=== PATIENT | female | born 1995 | race Caucasian/White ===

== ENCOUNTER 2022-06-27 20:42 | Inpatient (IN) | payer MEDICARE, MEDICAID, SELFPAY ==
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
[2022-06-28] MEDS: cloBAZam 10 MG TABLET PO (08:34)
[2022-06-28 08:49] VITALS: BP 91/45; PULSE 74; RESP 16; TEMP 36.4; O2SAT 97
[2022-06-28 09:16] VITALS: BP 96/59; PULSE 83
[2022-06-28 09:39] LABS: Estimated Average Glucose 77 mg/dL; Hemoglobin A1c % 4.3 %
--- NOTE | 2022-06-28 10:00 | P.HPPS_ITS ---
HPI Date of Service: 06/28/22 Chief Complaint: Adjustment disorder, unspecified Sources of Information: patient interviewed, chart reviewed and crisis/core team assessment reviewed HPI Subjective Notes: Moody Warning and Conditional Voluntary Narrative: Patient is a 27-year-old female with history with refractory epilepsy and implanted brain RNS, PTSD, social anxiety who presents for impulsive, intentional overdose in face of multiple psychosocial stressors including homelessness and being away from her 8-year-old son. Patient reports she was living in low-income housing with her boyfriend of 10 years and her son; the director there , there was a mass eviction and issues made it hard for her to get subsequent low-income housing. Patient and her son and boyfriend hopped from family to family for living. She felt this was detrimental to her son and temporarily gave up guardianship to her boyfriend's mother where he has been living for the past 3 years. Patient and her boyfriend have been living with a family for the past 2 and half years however the situation is untenable and the family wants them to move out. They are giving him time to find housing but it remains difficult. Patient currently works at a job that she likes but her boyfriend has not been able to find one. Although they pay rent, the family has been pushing them to move about soon and they have no place to go; patient also misses her son terribly and though she sees him weekly, is feeling marginalized by the temporary guardian. Faced with homelessness again and from her son, patient started to get overwhelmingly anxious. In a moment of despair, she impulsively grabbed her seizure medication and took it an intentional suicide at [facility]. Patient got scared and did not want to called her mother who called 911. Patient is very glad she is alive and remorseful, never wanting to leave her son alone. With tear she says she wants to be back with her son and have a place to live. Patient endorses history of social anxiety and often avoids places with a lot of people. History of trauma and endorses intermittent flashbacks but daily avoidance of triggers and hypervigilance. She denies any history of SI or attempts in the past though she intermittently will engage in superficial self-harming behavior. She endorses feeling depressed but says it is just situational because she is away from her son. Denies history of manic episodes or behaviors. She denies any drug or alcohol abuse. Patient would like treatment for anxiety. She reports she is safe and would never hurt herself again and hopes to be able to discharge soon, very much wanting to see her son for the holidays. Past Psychiatric History: One history of inpatient admission when she was in 6th grade; nothing otherwise Trial of escitalopram which was ineffective Medical Evaluation Reviewed: Hospitalist Yarely Pending [facility] Medical History (Updated 06/28/22 @ 16:46 by Peterson Sim MD) Epilepsy PTSD (post-traumatic stress disorder) Family History: Mother: Anxiety Social History: Currently homeless, staying at a family's house Long-time boyfriend for the past 10 years who is supportive 8-year-old son who lives with her boyfriend's mother who is the temporary guardian Patient's mother is supportive and has invited patient to come live with her however there is no room for her son Patient currently has a job at a [employer] Substance History: Denies Trauma History: Positive trauma history; patient did not elaborate Diagnostics Vital Signs (24Hr): Vital Signs - 24 hr 06/28/22 08:49 06/28/22 09:16 Temperature 97.6 F Pulse Rate 74 83 Respiratory Rate 16 Blood Pressure 91/45 L 96/59 L Pulse Oximetry 97 Oxygen Delivery Method Room Air Labs Results: 06/28/22 08:48 Labs: Laboratory Results - last 48 hr 06/28/22 08:48 Estimat Average Glucose 77 Hemoglobin A1c % 4.3 Meds/Allergies Meds Home Medications Medication Instructions Recorded Confirmed Type clobazam 10 mg PO DAILY 06/27/22 06/27/22 History clobazam 15 mg PO BEDTIME 06/27/22 06/28/22 History zonisamide 800 mg PO BID 06/27/22 06/28/22 History Allergies Allergies Allergy/AdvReac Type Severity Reaction Status Date / Time oxcarbazepine Allergy Rash Verified 06/28/22 00:04 [From Trileptal] levetiracetam [From Keppra] AdvReac Agitated Verified 06/28/22 00:04 Mental Status Exam Mental Status Exam Narrative: Pt is alert and oriented; behavior is cooperative, tearful, anxious; patient is not in distress; dressed in casual attire with adequate hygiene; mood is described as anxious and affect congruent and tearful; eye contact appropriate; Speech is normal rate, volume and prosody and not pressured; no psychomotor agitation/retardation present; thought process is organized and goal directed; Thought content is on troubles, treatment and seeing her son; otherwise pertinent to relevant topics and without any delusional content, paranoid ideations or grandiosity; denies any SI/HI. There is no evidence of perceptual disturbance. Patients insight and judgment appear intact. Assessment & Plan Assessment & Plan (1) Adjustment disorder with mixed disturbance of emotions and conduct: Status: Acute Code(s): F43.25 - Adjustment disorder with mixed disturbance of emotions and conduct (2) Epilepsy: Status: Acute Code(s): G40.909 - Epilepsy, unspecified, not intractable, without status epilepticus (3) PTSD (post-traumatic stress disorder): Status: Acute Code(s): F43.10 - Post-traumatic stress disorder, unspecified Plan Patient is a 27-year-old female with history with refractory epilepsy and implanted brain RNS, PTSD, social anxiety who presents for impulsive, intentional overdose in face of multiple psychosocial stressors including homelessness and being away from her 8-year-old son Patient suicide attempt was impulsive; she regrets that is very glad she is alive. Like medication treatment for anxiety. However she is adamant that this was a 1 time event, that she will never do it again and denies any history of attempts. She is hoping to discharge soon. Patient has refractory epilepsy and currently does not have access to 1 of her antiepileptic medications Aptiom. Hospice Home Health Aide is hesitant to start medication for anxiety since her for all anti epile ptic medication regimen is not available. However the risk of lowering the seizure threshold with antidepressant is very low and patient does have an implanted RNS making risk of seizure induced by antidepressant medication low risk. Patient would like therapist on discharge Plan: CV Q 15 minute checks Continue Clobazam 10mg daily and 15mg qhs Continue Zonisamide 300mg BID Continue Aptiom 800mg BID: * not on formulary: Patient does not have her own; working with pharmacy to see if can obtain Considering medication for anxiety however technical writer and editor is hesitant to start 1 while patient does not have full anti epileptic medication regimen available [facility] Aide called patient's neurologist Dr. Polanco and waiting to hear back reviewed labs from [facility] Lytes, CBC, calcium WNL HCG negative UDS: +benzo/cannabanoids Reviewed medication trials: escitalopram: Not effective Lamictal: Rash Trileptal: Increased anger Depakote: Increased anger Patient educated on: diagnosis, medication risk/benefits, therapeutic strategies and medical condition Informed Consent: understands Reason for continued inpatient stay Substantial Risk for: rapid decompensation Statement Statement: I have reviewed the history and physical and performed a pertinent examination on my patient. No changes have occurred unless specified. If the History and Physical was not performed prior to admission, the Hospitalist's service will be consulted for completing the admission physical. Time Spent With Patient Time: Total time managing care of this patient today ____ minutes.
[2022-06-28 10:27] LABS: Alanine Aminotransferase 10 U/L (0-31); Albumin Level 4.5 g/dL (3.5-5.0); Alkaline Phosphatase 96 U/L (39-117); Anion Gap 11 (12-20); Aspartate Amino Transferase 16 U/L (5-31); Bilirubin Direct < 0.2 mg/dL (0.0-0.5); Bilirubin Total 0.3 mg/dL (0.0-1.0); Blood Urea Nitrogen 14 mg/dL (9-16); Calcium 9.3 mg/dL (8.4-10.2); Carbon Dioxide 22 mmol/L (22-29); Chloride 111 mmol/L (96-108); Cholesterol 223 mg/dL; Estimated Glomerular Filt Rate > 60; Glucose Fasting 85 mg/dL (60-99); HDL Cholesterol 52 mg/dL; LDL Cholesterol Calculated 157 mg/dl; Potassium 4.2 mmol/L (3.3-5.1); Sodium 140 mmol/L (135-145); Thyroid Stimulating Hormone 2.09 uIU/mL (0.32-4.0); Triglycerides 74 mg/dL
[2022-06-28 10:31] LABS: Folate 19.1 ng/mL (> or = 4.0); Vitamin B12 389 pg/mL (200-900)
[2022-06-28] MEDS: Zonisamide 100 MG CAPSULE 300 MG PO ×2 (12:37→19:32)
--- NOTE | 2022-06-28 13:49 | P.CONHOSP_ITS ---
History of Present Illness Data of Consult Service Date: 06/28/22 Primary Care Provider: Unknown Physician HPI Reason for consult: routine medical H&P 27 yo F admitted to . Medical consult requested for routine medical H&P. Pt seen and their room. No medical complaints reported. PMH Seizure disorder P[facility] Intra-cranial surgery in [place] for her seizures (states she has an implant for her seizures) Appendectomy FH anxiety in mother SH denies tobacco, alcohol or ilicit substances [facility] Medical History (Updated 06/28/22 @ 17:21 by Folrin Ward MD) Epilepsy PTSD (post-traumatic stress disorder) Social History Household Members: Significant Other Housing: Homeless Do you presently have visiting nurse or other home services: No Patient Tobacco Use Status: Never used Tobacco Patient Given Instructions on How to Stop Smoking: No Second Hand Smoke Exposure: Yes Use of substances other than those prescribed or required for medical reasons: Yes Substance Use Type: Marijuana Substance Use Frequency: Daily Last Used Substance: Just Prior to Admission Currently Displaying Signs/Symptoms of Drug Intoxication Withdrawal: No Any prior treatment program specific to substance use: No Have you been hit, kicked, punched, or otherwise hurt by someone within the past year? If so, by whom?: No Do you feel safe in your current relationship?: Yes Is there a partner from a previous relationship who is making you feel unsafe now?: No Are you made to feel afraid or neglected: No Spiritual Healthcare Practices: None Orthodoxy Healthcare Practices: None Cultural Healthcare Practices: None Advance Directives: No Advance Directives Information Provided: No Do you have thoughts of harming others: None Do you have a plan to hurt others: No Plan Recently lost weight without trying: No Eating poorly because of decreased appetite: No Nutrition Risks: Difficulty swallowing Patient : No : No Poor oral hygiene: No service: No Sexual orientation: Straight/Heterosexual Meds Allergies Allergy/AdvReac Type Severity Reaction Status Date / Time oxcarbazepine Allergy Rash Verified 06/28/22 00:04 [From Trileptal] levetiracetam [From Keppra] AdvReac Agitated Verified 06/28/22 00:04 Active Medications: Current Medications Acetaminophen (Acetaminophen 325 Mg Tablet) 650 mg PO Q6H PRN PRN Reason: Headache/Pain Mild Scale (1-3) Al Hydroxide/Mg Hydroxide (Magnesium Hydrox/Alum Hydrox 30 Ml Oral.Susp) 30 ml PO Q6H PRN PRN Reason: Heartburn/Nausea Clobazam (Clobazam 10 Mg Tablet) 15 mg PO BEDTIME [facility] Clobazam (Clobazam 10 Mg Tablet) 10 mg PO DAILY [facility] Last Admin: 06/28/22 08:34 Dose: 10 mg Hydroxyzine HCl (Hydroxyzine Hcl 25 Mg Tablet) 25 mg PO Q6H PRN PRN Reason: Anxiety Magnesium Hydroxide (Milk Of Magnesia 30 Ml Oral.Susp) 30 ml PO DAILY PRN PRN Reason: Constipation Non-Formulary Medication (Aptiom) 800 mg PO BID [facility] Trazodone HCl (Trazodone Hcl 50 Mg Tablet) 50 mg PO BEDTIME PRN PRN Reason: Insomnia Zonisamide (Zonisamide 100 Mg Capsule) 300 mg PO BID [facility] Home Medications Medication Instructions Recorded Confirmed Last Taken Type clobazam 10 mg PO DAILY 06/27/22 06/27/22 Unknown History clobazam 15 mg PO BEDTIME 06/27/22 06/28/22 Unknown History zonisamide 800 mg PO BID 06/27/22 06/28/22 Unknown History Physical Exam Vital Signs and Narrative: Vital Signs: Last Vital Signs Temp 97.6 F 06/28/22 08:49 Pulse 83 06/28/22 09:16 Resp 16 06/28/22 08:49 BP 96/59 L 06/28/22 09:16 Pulse Ox 97 06/28/22 08:49 O2 Del Method 06/28/22 08:49 Const: Other: General - no acute distress, appears comfortable Cardiovascular - regular rate and rhythm, S1-S2 Lungs - normal respiratory effort, clear to auscultation bilaterally, no wheezing Abdomen - soft, nontender, no rebound or guarding Extremities - no edema bilaterally Neuro - awake and alert, no focal deficits; cn 2-12 intact b/l Results Labs CBC and Chem 7: 06/28/22 08:48 Labs: Laboratory Results - last 24 hr 06/28/22 06/28/22 06/28/22 08:48 08:48 08:48 Anion Gap 11 L Estim Creat Clear Calc TNP Estimated GFR > 60 Fasting Glucose 85 Estimat Average Glucose 77 Hemoglobin A1c % 4.3 Calcium 9.3 Total Bilirubin 0.3 Direct Bilirubin < 0.2 AST 16 ALT 10 Alkaline Phosphatase 96 Total Protein 7.0 Albumin 4.5 Triglycerides 74 Cholesterol 223 LDL Cholesterol, Calc 157 HDL Cholesterol 52 Vitamin B12 389 Folate 19.1 TSH 2.09 Assessment and Plan (1) Routine medical exam: Status: Acute Plan 27 yo F admitted to [facility]. Medically stable at this time. Continue her anti-epileptics Will sign off at this time. Re-consult with any issues. Time Spent With Patient Time: Total time managing care of this patient today ____ minutes.
[2022-06-28 17:22] VITALS: BP 123/58; PULSE 75; RESP 16; TEMP 36.6; O2SAT 98
[2022-06-28] MEDS: cloBAZam 10 MG TABLET 15 MG PO (19:29)
[2022-06-29] MEDS: cloBAZam 10 MG TABLET PO (08:10)
[2022-06-29] MEDS: Zonisamide 100 MG CAPSULE 300 MG PO ×2 (08:10→20:49)
[2022-06-29 08:59] VITALS: BP 106/71; PULSE 74; RESP 18; TEMP 36.4; O2SAT 97
--- NOTE | 2022-06-29 10:37 | P.PNPSI_ITS ---
Subjective Subjective Date of Service: 06/29/22 Reason For Visit: Adjustment disorder, unspecified Interim History: agrees to remain on unit for further stabilization and med management. Also discussed conversation w/ neuro team (see below) and pt agrees to start Tegretol. pt gave verbal permission for account underwriter to discuss case with neuro team (witnessed by SW transportation logistics internship Leydi) talked with Jailene Neuro PA who works w/ (and confirmed with) dr. Polanco and informs that pt is at increasing risk for seizure the longer she is off Aptiom. Recommends discontinuing Aptiom since they too have trouble with Diagnostics Vital Signs (24Hr): Vital Signs - 24 hr Narrative: 17:22 06/29/22 08:59 Temperature 98 F 97.6 F Pulse Rate 75 74 Respiratory Rate 16 18 Blood Pressure 123/58 L 106/71 Diagnostics Vital Signs (24Hr): Oxygen Delivery Method Room Air Room Air Labs 08:59 Temperature 98 F 97.6 F Pulse Rate 75 74 Respiratory Rate 16 18 Blood Pressure 123/58 L 106/71 Pulse Oximetry 98 97 Oxygen Delivery Method Room Air Room Air Labs Results: 06/28/22 08:48 Labs: BUN 14 06/28/22 06/28/22 06/28/22 08:48 08:48 08:48 Sodium 140 Potassium 4.2 Chloride 111 H Carbon Dioxide 22 Anion Gap 11 L BUN 14 Creatinine 0.92 Estim Creat Clear Calc TNP Estimated GFR > 60 Fasting Glucose 85 Estimat Average Glucose 77 Hemoglobin A1c % 4.3 Calcium 9.3 Total Bilirubin 0.3 Direct Bilirubin < 0.2 AST 16 ALT 10 Alkaline Phosphatase 96 Total Protein 7.0 Albumin 4.5 Triglycerides 74 Cholesterol 223 LDL Cholesterol, Calc 157 HDL Cholesterol 52 Vitamin B12 389 Folate 19.1 TSH 2.09 Medications Medications Current Medications Acetaminophen (Acetaminophen 325 Mg Tablet) 650 mg PO Q6H PRN PRN Reason: Headache/Pain Mild Scale (1-3) Al Hydroxide/Mg Hydroxide (Magnesium Hydrox/Alum Hydrox 30 Ml Oral.Susp) 30 ml PO Q6H PRN PRN Reason: Heartburn/Nausea Clobazam (Clobazam 10 Mg Tablet) 15 mg PO BEDTIME [facility] Last Admin: 06/28/22 19:29 Dose: 15 mg Clobazam (Clobazam 10 Mg Tablet) 10 mg PO DAILY [facility] Last Admin: 06/29/22 08:10 Dose: 10 mg Hydroxyzine HCl (Hydroxyzine Hcl 25 Mg Tablet) 25 mg PO Q6H PRN PRN Reason: Anxiety Magnesium Hydroxide (Milk Of Magnesia 30 Ml Oral.Susp) 30 ml PO DAILY PRN PRN Reason: Constipation Non-Formulary Medication (Aptiom) 800 mg PO BID [facility] Trazodone HCl (Trazodone Hcl 50 Mg Tablet) 50 mg PO BEDTIME PRN PRN Reason: Insomnia Zonisamide (Zonisamide 100 Mg Capsule) 300 mg PO BID [facility] Last Admin: 06/29/22 08:10 Dose: 300 mg Allergies Allergies Allergy/AdvReac Type Severity Reaction Status Date / Time oxcarbazepine Allergy Rash Verified 06/28/22 00:04 [From Trileptal] levetiracetam [From Keppra] AdvReac Agitated Verified 06/28/22 00:04 Assessment & Plan Assessment & Plan Z00.00 - Encounter for general adult medical examination without abnormal (1) Routine medical exam: Status: Acute Code(s): findings Plan Patient is a 27-year-old female with history with refractory epilepsy and
--- NOTE | 2022-06-29 10:37 | HO.PSYCHPN ---
Subjective Subjective Date of Service: 06/29/22 Reason For Visit: Adjustment disorder, unspecified Interim History: pt reports feeling a little better; discussed mood and potential helpfulness of medication. pt agrees to trial of Mirtazpine (discussed risks/side-effects). She agrees to remain on unit for further stabilization and med management. Also discussed conversation w/ neuro team (see below) and pt agrees to start Tegretol. pt gave verbal permission for publications writer to discuss case with neuro team (witnessed by SW architectural intern Leydi) talked with [facility] DEBBY who works w/ (and confirmed with) dr. Polanco and informs that pt is at increasing risk for seizure the longer she is off Aptiom. Recommends discontinuing Aptiom since they too have trouble with insurance and instead starting her on Tegretol IR 200mg BID for 1 week and then increasing to 400mg BID. She also says SSRI's or Remeron are fine for treatment of anxiety/depression. Reports that pt went off her seizure meds once before this past summer saying she was depressed, however she resumed taking them. Mental Status Exam Mental Status Exam Narrative: Pt is alert and oriented; behavior is cooperative, friendly, calm; not tearful; patient is not in distress; dressed in casual attire with adequate hygiene; mood is described as little better and affect congruent more calm; eye contact appropriate; Speech is normal rate, volume and prosody and not pressured; no psychomotor agitation/retardation present; thought process is organized and goal directed; Thought content is on troubles, treatment and seeing her son; otherwise pertinent to relevant topics and without any delusional content, paranoid ideations or grandiosity; denies any SI/HI. There is no evidence of perceptual disturbance. Patients insight and judgment appear intact. Diagnostics Vital Signs (24Hr): Vital Signs - 24 hr 06/28/22 17:22 06/29/22 08:59 Temperature 98 F 97.6 F Pulse Rate 75 74 Respiratory Rate 16 18 Blood Pressure 123/58 L 106/71 Pulse Oximetry 98 97 Oxygen Delivery Method Room Air Room Air Labs Results: 06/28/22 08:48 Labs: Laboratory Results - last 48 hr 06/28/22 06/28/22 06/28/22 08:48 08:48 08:48 Sodium 140 Potassium 4.2 Chloride 111 H Carbon Dioxide 22 Anion Gap 11 L BUN 14 Creatinine 0.92 Estim Creat Clear Calc TNP Estimated GFR > 60 Fasting Glucose 85 Estimat Average Glucose 77 Hemoglobin A1c % 4.3 Calcium 9.3 Total Bilirubin 0.3 Direct Bilirubin < 0.2 AST 16 ALT 10 Alkaline Phosphatase 96 Total Protein 7.0 Albumin 4.5 Triglycerides 74 Cholesterol 223 LDL Cholesterol, Calc 157 HDL Cholesterol 52 Vitamin B12 389 Folate 19.1 TSH 2.09 Medications Medications Current Medications Acetaminophen (Acetaminophen 325 Mg Tablet) 650 mg PO Q6H PRN PRN Reason: Headache/Pain Mild Scale (1-3) Al Hydroxide/Mg Hydroxide (Magnesium Hydrox/Alum Hydrox 30 Ml Oral.Susp) 30 ml PO Q6H PRN PRN Reason: Heartburn/Nausea Clobazam (Clobazam 10 Mg Tablet) 15 mg PO BEDTIME [facility] Last Admin: 06/28/22 19:29 Dose: 15 mg Clobazam (Clobazam 10 Mg Tablet) 10 mg PO DAILY [facility] Last Admin: 06/29/22 08:10 Dose: 10 mg Hydroxyzine HCl (Hydroxyzine Hcl 25 Mg Tablet) 25 mg PO Q6H PRN PRN Reason: Anxiety Magnesium Hydroxide (Milk Of Magnesia 30 Ml Oral.Susp) 30 ml PO DAILY PRN PRN Reason: Constipation Non-Formulary Medication (Aptiom) 800 mg PO BID [facility] Trazodone HCl (Trazodone Hcl 50 Mg Tablet) 50 mg PO BEDTIME PRN PRN Reason: Insomnia Zonisamide (Zonisamide 100 Mg Capsule) 300 mg PO BID [facility] Last Admin: 06/29/22 08:10 Dose: 300 mg Allergies Allergies Allergy/AdvReac Type Severity Reaction Status Date / Time oxcarbazepine Allergy Rash Verified 06/28/22 00:04 [From Trileptal] levetiracetam [From Keppra] AdvReac Agitated Verified 06/28/22 00:04 Assessment & Plan Assessment & Plan (1) Routine medical exam: Status: Acute Code(s): Z00.00 - Encounter for general adult medical examination without abnormal findings Plan Patient is a 27-year-old female with history with refractory epilepsy and implanted brain RNS, PTSD, social anxiety who presents for impulsive, intentional overdose in face of multiple psychosocial stressors including homelessness and being away from her 8-year-old son Patient suicide attempt was impulsive; she regrets that is very glad she is alive.? Like medication treatment for anxiety.? However she is adamant that this was a 1 time event, that she will never do it again and denies any history of attempts.? She is hoping to discharge soon.? Patient has refractory epilepsy and currently does not have access to 1 of her antiepileptic medications Aptiom.? Crematorium Operator is hesitant to start medication for anxiety since her for all anti epileptic medication regimen is not available.? However the risk of lowering the seizure threshold with antidepressant is very low and patient does have an implanted RNS making risk of seizure induced by antidepressant medication low risk.? Patient would like therapist on discharge 06/29 reports mood a little better; agrees to trial of mirtazapine for mood/anxiety; agrees to trial of TEgretol and to dc Aptiom per outpt neuro provider. Pt's denies any SI at all and hopes to return home soon. She signed 3 day agrees to remain for few more days to establish tolerance of new meds Plan: 3 day notice Q 15 minute checks START Mirtazapine 7.5mg for depression/anxiety Continue Clobazam 10mg daily and 15mg qhs Continue Zonisamide 300mg BID START Tegretol IR 200mg BID for 1 week (and then 400mg BID) per outpt neurologist. DISCONTINUE Aptiom (and start Tegretol instead) Discussed case with patient's neurologist DEBBY who talked w/ Dr. Polanco and gave recs reviewed labs from [facility] Lytes, CBC, calcium WNL HCG negative UDS: +benzo/cannabanoids Reviewed medication trials:? escitalopram:? Not effective Lamictal: Rash Trileptal:? Increased anger Depakote: Increased sam Patient educated on: diagnosis, medication risk/benefits and medical condition Informed Consent: understands Reason for contiued inpatient stay Substantial Risk for: stable for discharge Time Spent With Patient Time: Total time managing care of this patient today ____ minutes.
[2022-06-29] MEDS: carBAMazepine 200 MG TABLET PO ×2 (16:18→20:52)
[2022-06-29 18:00] VITALS: BP 116/70; PULSE 74; RESP 16; TEMP 36.6; O2SAT 97
[2022-06-29] MEDS: cloBAZam 10 MG TABLET 15 MG PO (20:49)
[2022-06-29] MEDS: Mirtazapine 7.5 MG TABLET PO (20:50)
[2022-06-30 08:16] VITALS: BP 118/83; PULSE 73; RESP 16; TEMP 36.1; O2SAT 97
[2022-06-30] MEDS: cloBAZam 10 MG TABLET PO (08:49)
[2022-06-30] MEDS: carBAMazepine 200 MG TABLET PO ×2 (08:49→22:28)
[2022-06-30] MEDS: Zonisamide 100 MG CAPSULE 300 MG PO ×2 (08:50→22:28)
[2022-06-30 18:00] VITALS: BP 115/65; PULSE 77; TEMP 37.7; O2SAT 100
[2022-06-30] MEDS: cloBAZam 10 MG TABLET 15 MG PO (22:27)
[2022-06-30] MEDS: Mirtazapine 7.5 MG TABLET PO (22:29)
[2022-07-01] MEDS: Zonisamide 100 MG CAPSULE 300 MG PO ×2 (08:21→21:41)
[2022-07-01] MEDS: cloBAZam 10 MG TABLET PO (08:21)
[2022-07-01] MEDS: carBAMazepine 200 MG TABLET PO ×2 (08:21→21:42)
[2022-07-01 08:30] VITALS: BP 121/73; PULSE 78; RESP 18; TEMP 36.3; O2SAT 97
--- NOTE | 2022-07-01 11:48 | HO.PSYCHPN ---
Subjective Subjective Date of Service: 07/01/22 Reason For Visit: Adjustment disorder, unspecified Subjective Notes: Conditional Voluntary Interim History: Patient was seen and discussed in rounds today. Records and plans were reviewed. He has been visible. He appears to be doing better with broader affect. He is social and active and engaged. Eating and sleeping adequately. Planning for discharge early next week, possibly Sunday. No changes were made today Review of Systems Review of Systems Yes all other systems are reviewed and are negative Mental Status Exam Mental Status Exam Narrative: In today's visit he is alert, oriented and pleasant. Normal speech. Good eye contact. Affect is appropriate and contained. No signs of psychosis. No SI. Cognitively intact. Judgment is intact Diagnostics Vital Signs (24Hr): Vital Signs - 24 hr 06/30/22 18:00 07/01/22 08:30 Temperature 99.8 F 97.4 F Pulse Rate 77 78 Respiratory Rate 18 Blood Pressure 115/65 121/73 Pulse Oximetry 100 97 Oxygen Delivery Method Room Air Room Air Labs Results: 06/28/22 08:48 Medications Medications Current Medications Acetaminophen (Acetaminophen 325 Mg Tablet) 650 mg PO Q6H PRN PRN Reason: Headache/Pain Mild Scale (1-3) Al Hydroxide/Mg Hydroxide (Magnesium Hydrox/Alum Hydrox 30 Ml Oral.Susp) 30 ml PO Q6H PRN PRN Reason: Heartburn/Nausea Carbamazepine (Carbamazepine 200 Mg Tablet) 200 mg PO BID [facility] Last Admin: 07/01/22 08:21 Dose: 200 mg Clobazam (Clobazam 10 Mg Tablet) 15 mg PO BEDTIME [facility] Last Admin: 06/30/22 22:27 Dose: 15 mg Clobazam (Clobazam 10 Mg Tablet) 10 mg PO DAILY [facility] Last Admin: 07/01/22 08:21 Dose: 10 mg Hydroxyzine HCl (Hydroxyzine Hcl 25 Mg Tablet) 25 mg PO Q6H PRN PRN Reason: Anxiety Magnesium Hydroxide (Milk Of Magnesia 30 Ml Oral.Susp) 30 ml PO DAILY PRN PRN Reason: Constipation Mirtazapine (Mirtazapine 7.5 Mg Tablet) 7.5 mg PO BEDTIME [facility] Last Admin: 06/30/22 22:29 Dose: 7.5 mg Trazodone HCl (Trazodone Hcl 50 Mg Tablet) 50 mg PO BEDTIME PRN PRN Reason: Insomnia Zonisamide (Zonisamide 100 Mg Capsule) 300 mg PO BID [facility] Last Admin: 07/01/22 08:21 Dose: 300 mg Allergies Allergies Allergy/AdvReac Type Severity Reaction Status Date / Time oxcarbazepine Allergy Rash Verified 06/28/22 00:04 [From Trileptal] levetiracetam [From Keppra] AdvReac Agitated Verified 06/28/22 00:04 Assessment & Plan Assessment & Plan (1) Routine medical exam: Status: Acute Code(s): Z00.00 - Encounter for general adult medical examination without abnormal findings Plan Patient is a 27-year-old female with history with refractory epilepsy and implanted brain RNS, PTSD, social anxiety who presents for impulsive, intentional overdose in face of multiple psychosocial stressors including homelessness and being away from her 8-year-old son Patient suicide attempt was impulsive; she regrets that is very glad she is alive.? Like medication treatment for anxiety.? However she is adamant that this was a 1 time event, that she will never do it again and denies any history of attempts.? She is hoping to discharge soon.? Patient has refractory epilepsy and currently does not have access to 1 of her antiepileptic medications Aptiom.? Clay Roaster is hesitant to start medication for anxiety since her for all anti epileptic medication regimen is not available.? However the risk of lowering the seizure threshold with antidepressant is very low and patient does have an implanted RNS making risk of seizure induced by antidepressant medication low risk.? Patient would like therapist on discharge 06/29 reports mood a little better; agrees to trial of mirtazapine for mood/anxiety; agrees to trial of TEgretol and to dc Aptiom per outpt neuro provider. Pt's denies any SI at all and hopes to return home soon. She signed 3 day agrees to remain for few more days to establish tolerance of new meds Plan: 3 day notice Q 15 minute checks START Mirtazapine 7.5mg for depression/anxiety Continue Clobazam 10mg daily and 15mg qhs Continue Zonisamide 300mg BID START Tegretol IR 200mg BID for 1 week (and then 400mg BID) per outpt neurologist. DISCONTINUE Aptiom (and start Tegretol instead) Discussed case with patient's neurologist DEBBY who talked w/ Dr. Polanco and gave recs reviewed labs from [facility] Lytes, CBC, calcium WNL HCG negative UDS: +benzo/cannabanoids Reviewed medication trials:? escitalopram:? Not effective Lamictal: Rash Trileptal:? Increased anger Depakote: Increased sam 07/01: Continue current plans and regimen Reason for contiued inpatient stay Substantial Risk for: med/psych decompensation Time Spent With Patient Time: Total time managing care of this patient today ____ minutes.
[2022-07-01] MEDS: Milk of Magnesia 30 ML ORAL.SUSP PO (16:18)
[2022-07-01 19:03] VITALS: BP 136/72; PULSE 73
[2022-07-01] MEDS: Mirtazapine 7.5 MG TABLET PO (21:41)
[2022-07-01] MEDS: cloBAZam 10 MG TABLET 15 MG PO (21:41)
[2022-07-02] MEDS: Zonisamide 100 MG CAPSULE 300 MG PO ×2 (07:46→22:14)
[2022-07-02] MEDS: cloBAZam 10 MG TABLET PO (07:46)
[2022-07-02] MEDS: carBAMazepine 200 MG TABLET PO ×2 (07:46→22:13)
[2022-07-02 07:47] VITALS: BP 117/65; PULSE 91; RESP 18; TEMP 36.4; O2SAT 97
--- NOTE | 2022-07-02 08:18 | HO.PSYCHPN ---
Subjective Subjective Date of Service: 07/02/22 Reason For Visit: Adjustment disorder, unspecified Subjective Notes: Conditional Voluntary Healthcare Proxy: No Guardianship: No Medical Problems Affecting Mental Status: No Interim History: Patient was seen and discussed in rounds today. Records and plans were reviewed. She has been stable and is doing well. She is occasion compliant. Still has some anxiety. She is out, social and interactive. Eating and sleeping adequately. No complaints or side effects. No changes were made today Medication Compliance: Yes Side effects from medications: No Review of Systems Review of Systems Yes all other systems are reviewed and are negative Mental Status Exam Mental Status Exam Narrative: In today's visit he is alert, oriented and pleasant. Normal speech. Good eye contact. Affect is appropriate and contained. No signs of psychosis. No SI. Cognitively intact. Judgment is intact Diagnostics Vital Signs (24Hr): Vital Signs - 24 hr 07/01/22 08:30 07/01/22 19:03 07/02/22 07:47 Temperature 97.4 F 97.6 F Pulse Rate 78 73 91 Respiratory Rate 18 18 Blood Pressure 121/73 136/72 117/65 Pulse Oximetry 97 97 Oxygen Delivery Method Room Air Room Air Labs Results: 06/28/22 08:48 Medications Medications Current Medications Acetaminophen (Acetaminophen 325 Mg Tablet) 650 mg PO Q6H PRN PRN Reason: Headache/Pain Mild Scale (1-3) Al Hydroxide/Mg Hydroxide (Magnesium Hydrox/Alum Hydrox 30 Ml Oral.Susp) 30 ml PO Q6H PRN PRN Reason: Heartburn/Nausea Carbamazepine (Carbamazepine 200 Mg Tablet) 200 mg PO BID [facility] Last Admin: 07/02/22 07:46 Dose: 200 mg Clobazam (Clobazam 10 Mg Tablet) 15 mg PO BEDTIME [facility] Last Admin: 07/01/22 21:41 Dose: 15 mg Clobazam (Clobazam 10 Mg Tablet) 10 mg PO DAILY [facility] Last Admin: 07/02/22 07:46 Dose: 10 mg Hydroxyzine HCl (Hydroxyzine Hcl 25 Mg Tablet) 25 mg PO Q6H PRN PRN Reason: Anxiety Magnesium Hydroxide (Milk Of Magnesia 30 Ml Oral.Susp) 30 ml PO DAILY PRN PRN Reason: Constipation Last Admin: 07/01/22 16:18 Dose: 30 ml Mirtazapine (Mirtazapine 7.5 Mg Tablet) 7.5 mg PO BEDTIME [facility] Last Admin: 07/01/22 21:41 Dose: 7.5 mg Trazodone HCl (Trazodone Hcl 50 Mg Tablet) 50 mg PO BEDTIME PRN PRN Reason: Insomnia Zonisamide (Zonisamide 100 Mg Capsule) 300 mg PO BID [facility] Last Admin: 07/02/22 07:46 Dose: 300 mg Allergies Allergies Allergy/AdvReac Type Severity Reaction Status Date / Time oxcarbazepine Allergy Rash Verified 06/28/22 00:04 [From Trileptal] levetiracetam [From Keppra] AdvReac Agitated Verified 06/28/22 00:04 Assessment & Plan Assessment & Plan (1) Routine medical exam: Status: Acute Code(s): Z00.00 - Encounter for general adult medical examination without abnormal findings Plan Patient is a 27-year-old female with history with refractory epilepsy and implanted brain RNS, PTSD, social anxiety who presents for impulsive, intentional overdose in face of multiple psychosocial stressors including homelessness and being away from her 8-year-old son Patient suicide attempt was impulsive; she regrets that is very glad she is alive.? Like medication treatment for anxiety.? However she is adamant that this was a 1 time event, that she will never do it again and denies any history of attempts.? She is hoping to discharge soon.? Patient has refractory epilepsy and currently does not have access to 1 of her antiepileptic medications Aptiom.? Medical Csr is hesitant to start medication for anxiety since her for all anti epileptic medication regimen is not available.? However the risk of lowering the seizure threshold with antidepressant is very low and patient does have an implanted RNS making risk of seizure induced by antidepressant medication low risk.? Patient would like therapist on discharge 06/29 reports mood a little better; agrees to trial of mirtazapine for mood/anxiety; agrees to trial of TEgretol and to dc Aptiom per outpt neuro provider. Pt's denies any SI at all and hopes to return home soon. She signed 3 day agrees to remain for few more days to establish tolerance of new meds Plan: 3 day notice Q 15 minute checks START Mirtazapine 7.5mg for depression/anxiety Continue Clobazam 10mg daily and 15mg qhs Continue Zonisamide 300mg BID START Tegretol IR 200mg BID for 1 week (and then 400mg BID) per outpt neurologist. DISCONTINUE Aptiom (and start Tegretol instead) Discussed case with patient's neurologist PA who talked w/ Dr. Polanco and gave recs reviewed labs from [facility] Lytes, CBC, calcium WNL HCG negative UDS: +benzo/cannabanoids Reviewed medication trials:? escitalopram:? Not effective Lamictal: Rash Trileptal:? Increased anger Depakote: Increased sam 07/01: Continue current plans and regimen 07/02: Continue current regimen and plans Reason for contiued inpatient stay Substantial Risk for: med/psych decompensation Time Spent With Patient Time: Total time managing care of this patient today ____ minutes.
[2022-07-02 17:22] VITALS: BP 107/68; PULSE 86; RESP 18; TEMP 36; O2SAT 98
[2022-07-02] MEDS: cloBAZam 10 MG TABLET 15 MG PO (22:13)
[2022-07-02] MEDS: Mirtazapine 7.5 MG TABLET PO (22:14)
[2022-07-03 07:54] VITALS: BP 123/64; PULSE 80; RESP 16; TEMP 36.6; O2SAT 100
[2022-07-03] MEDS: Zonisamide 100 MG CAPSULE 300 MG PO (09:03)
[2022-07-03] MEDS: cloBAZam 10 MG TABLET PO (09:04)
[2022-07-03] MEDS: carBAMazepine 200 MG TABLET PO (09:04)
--- NOTE | 2022-07-03 09:58 | P.DS_ITS ---
DS: Providers Provider Date of Service: 07/03/22 Date of admission: 06/27/22 20:42 Date of discharge: 07/03/22 Primary care physician: Unknown Physician Attending physician on admission: Peterson Sim Consults: 06/27/22 21:08 Consult to Hospitalist Routine Consulting Provider: Hospitalist Reason For Exam: OSH admission Attending physician on discharge: Rubén Jacobo DS: Diagnosis Discharge Diagnosis (1) Routine medical exam: Status: Deleted DS: Medications Discharge Medications Home Medications: Home Medications Medication Instructions Recorded Confirmed zonisamide 800 mg PO BID 06/27/22 06/28/22 Previous Rx's Medication Instructions Recorded carbamazepine 200 mg tablet See Rx Instructions .Route 07/03/22 .COMPLEX 30 days #114 tabs clobazam 10 mg tablet 10 mg PO DAILY 30 days #30 tabs 07/03/22 clobazam 10 mg tablet 15 mg PO BEDTIME 30 days #45 tabs 07/03/22 mirtazapine 7.5 mg tablet 7.5 mg PO BEDTIME 30 days #30 tabs 07/03/22 Mental Status Exam Mental Status Exam Narrative: Pt is alert and oriented; behavior is cooperative, friendly, calm; patient is not in distress; dressed in casual attire with adequate hygiene; mood is described as euthymic and affect congruent; eye contact appropriate; Speech is normal rate, volume and prosody and not pressured; no psychomotor agitation/retardation present; thought process is organized and goal directed; Thought content is discharge, seeing her son, continuing treatment; otherwise pertinent to relevant topics and without any delusional content, paranoid ideations or grandiosity; denies any SI/HI. There is no evidence of perceptual disturbance. Patients insight and judgment appear intact. Data Data Completed and Pending Completed studies during hospitalization [Text1]: 06/28/22 06/28/22 06/28/22 08:48 08:48 08:48 Sodium 140 Potassium 4.2 Chloride 111 H Carbon Dioxide 22 Anion Gap 11 L BUN 14 Creatinine 0.92 Estim Creat Clear Calc TNP Estimated GFR > 60 Fasting Glucose 85 Estimat Average Glucose 77 Hemoglobin A1c % 4.3 Calcium 9.3 Total Bilirubin 0.3 Direct Bilirubin < 0.2 AST 16 ALT 10 Alkaline Phosphatase 96 Total Protein 7.0 Albumin 4.5 Triglycerides 74 Cholesterol 223 LDL Cholesterol, Calc 157 HDL Cholesterol 52 Vitamin B12 389 Folate 19.1 TSH 2.09 DS: Summary Hospital Course Hospital Course: HPI: Patient is a 27-year-old female with history with refractory epilepsy and implanted brain RNS, PTSD, social anxiety who presents for impulsive, intentional overdose in face of multiple psychosocial stressors including homelessness and being away from her 8-year-old son Hospital course: On admission, patient was deeply regretful about suicide attempt. She explained how suicide attempt was impulsive; she regrets that is very glad she is alive, and remained adamant that this was a 1 time event, that she will never do it again and denies any history of attempts.? Patient is hoped to discharge soon but was amenable to remain on the unit and starting medication for anxiety.? Patient's mood improved and she was started on mirtazapine for depression/anxiety. She remained without any SI at all. Patient was engaged in treatment, attending groups, forthcoming in 1 on 1 sessions and appropriate with peers and staff; she remained in good behavioral and impulse control throughout her stay on the unit. Patient's affect significantly brightened as her mood improved. She signed a 3 day notice but agreed to remain on the unit a few more days to establish tolerance. Patient tolerated medication well, remained in improved mood and felt ready for discharge with a plan to go stay at her mother's. Patient returns to a supportive environment and has the strong protective factor of her son. She is on medications that are helping with mood and therapy appointment set up. Patient was not in imminent risk for harm to self or others and her request for discharge honored. Patient has refractory epilepsy and currently does not have access to 1 of her antiepileptic medications Aptiom.? Amphibious Operations Officer discussed case with patient's outpatient neurology team who has been following patient for some time and knows the patient well. Neurologist recommended and patient agreed to trial of TEgretol and to dc Aptiom. Time spent discussing smoking cessation with patient: 3 to 10 minutes Status at Discharge Functional status at discharge: independent ambulation Overall status at discharge: patient is back to baseline Time Spent with Patient Time attestation: Total time managing care of this patient today ____ minutes. 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; in full remission Referrals: Christie Rivera MD [Physician] - 1 Week (OFFICE CLOSED DUE TO HOLIDAY) Discharge Medications: New mirtazapine 7.5 mg tablet 7.5 mg PO BEDTIME 30 Days Qty: 30 1RF carbamazepine 200 mg tablet See Rx Instructions .ROUTE .COMPLEX 30 Days Qty: 114 0RF Rx Instructions: take 1 tab BID for 3 days; Then take 2 tabs BID clobazam 10 mg Tablet 15 mg PO BEDTIME Qty: 0 0RF clobazam 10 mg Tablet 10 mg PO DAILY Qty: 0 0RF Continued zonisamide tablet 800 mg PO BID Discontinued clobazam tablet 15 mg PO BEDTIME clobazam tablet 10 mg PO DAILY Discharge Orders: Discharge Order (Routine); Ordered 07/03/22 Ordered By: Peterson Sim Diet: Regular diet Activity on Discharge: As tolerated Stand Alone Forms: Patient Portal Discharge page, Community Support Care Plan Goals: Maintain mood and safe behaviors Take medications as prescribed Practice coping skills Continue with outpatient providers and reach out to them as needed Health Concerns: Mood stability and behaviors Epilepsy Plan of Treatment: Follow up with your PCP, psychiatric provider and other outpatient providers r egarding above concerns Take medications as prescribed Assessment: Risk assessment at time of discharge:? Patient was interviewed prior to discharge and found to be fully oriented and without any SI or HI. Patient has insight and demonstrates good judgment in terms of wanting to pursue treatment. Patient is not in imminent risk of harm to self or others and has a safety plan that includes presenting to the closest ER or calling 911 if feeling unsafe.? Patient has been observed closely by nursing and unit staff throughout admission; patient has not engaged in any behaviors that suggest dangerousness to self or others and has demonstrated appropriate behaviors and impulse control Discharge Date/Time: 07/03/22 11:15
== END 2022-07-03 11:15 | disposition home or self-care (01) | DRG 882 ==
PROVIDERS: Psychiatry & Neurology Psychiatry; Admitting Provider Psychiatry & Neurology Psychiatry; Visit Provider Psychiatry & Neurology Psychiatry
DX: F43.25 Adjustment disorder with mixed disturbance of emotions and conduct (principal); G40.909 Epilepsy, unspecified, not intractable, without status epilepticus; F43.10 Post-traumatic stress disorder, unspecified; Z91.51 Personal history of suicidal behavior; Z59.01 Sheltered homelessness; Z96.82 Presence of neurostimulator; Z88.8 Allergy status to other drugs, medicaments and biological substances; Z79.899 Other long term (current) drug therapy
CPT/HCPCS: 36415; 80053; 80061; 80076; 82607; 82746; 83036; 84443